=== PATIENT | female | born 1995 | race Caucasian/White ===

== ENCOUNTER → 2017-04-25 | Outpatient (CLI) | payer BC, OTHER ==
[~2017-04-25] MED LIST: BIRTH CONTROL PILL; Bactrim Ds Tab1 EACH PO; Veetids 500500 MG PO; Zofran Odt4 MG SL
== END ==
LOC: LAB UCHC 10:04
DX: R30.0 Dysuria (principal)
CPT/HCPCS: 87086

== ENCOUNTER 2017-08-01 08:37 | Emergency (ER) | payer BC ==
[~2017-08-01] VITALS: Ht 170.2 cm; Wt 81.7 kg
[~2017-08-01 08:37] MED LIST changes: -Zofran Odt4 MG SL
[2017-08-01] MEDS ORDERED: Zofran Odt4 MG SL (10:02)
[2017-08-01] MEDS ORDERED: Veetids 500500 MG PO (10:02)
== END 2017-08-01 10:32 | disposition home or self-care (01) ==
LOC: ER 08:37
DX: J03.90 Acute tonsillitis, unspecified (principal)
CPT/HCPCS: 87081; 87147; 87430; 99283; J1100

== ENCOUNTER → 2018-06-29 | Outpatient (CLI) | payer BC, OTHER ==
[~2018-06-29] MED LIST changes: +Zofran Odt4 MG SL
[2018-07-06 14:37] LABS: CHLAMYDIA TRACHOMATIS, NAA Negative (Negative); NEISSERIA GONORRHOEAE, NAA Negative (Negative)
== END | disposition home or self-care (01) ==
LOC: LAB SHORT 12:25 → LAB 12:25
PROVIDERS: Family Medicine
DX: Z34.81 Encounter for supervision of other normal pregnancy, first trimester (principal); Z3A.09 9 weeks gestation of pregnancy
CPT/HCPCS: 87491; 87591; 88142

== ENCOUNTER → 2018-08-03 | Outpatient (CLI) | payer BC, OTHER | END | disposition home or self-care (01) | LOC: LAB 14:44 → LAB SHORT 14:44 | DX: R30.0 Dysuria (principal) | CPT/HCPCS: 87086 ==